=== PATIENT | male | born 1935 | race African-American/Black ===

== ENCOUNTER 2018-05-30 10:08 | Emergency (ER) | payer MEDICARE ==
[~2018-05-30] VITALS: Ht 185.4 cm; Wt 63.5 kg
[2018-05-30] MEDS ORDERED: SODIUM CHLORIDE 0.9% 1,000 ML IV ONE ×2 (12:04→13:45)
[2018-05-30] MEDS ORDERED: MORPHINE SULFATE 4 MG/ML CPJ (NOT FOR IM USE) IV STA (12:38)
[2018-05-30] MEDS ORDERED: TETANUS, DIPHTHERIA, PERTUSSIS VAC/PF 0.5ML (>7YR OLD) IM ONE (12:45)
[2018-05-30 13:07] LABS: CLARITY URINE CLOUDY (CLEAR); COLOR URINE YELLOW (YELLOW); KETONES URINE TRACE (NEGATIVE); LEUKOCYTE ESTERASE URINE TRACE (NEGATIVE); NITRITE URINE NEGATIVE (NEGATIVE); OCCULT BLOOD URINE 3+ (NEGATIVE); PROTEIN URINE 1+ (NEGATIVE); SPECIFIC GRAVITY URINE 1.018 (1.005-1.030); UROBILINOGEN URINE 0.2 E.U./dL (0.2-1.0)
[2018-05-30] MEDS ORDERED: SODIUM CHLORIDE 0.9% IRRIG SOLUTION 1000ML IR ONE (13:45)
[2018-05-30 13:53] LABS: *AMPHETAMINES SCREEN URINE NEGATIVE (NEGATIVE)
[2018-05-30 13:54] LABS: *BARBITURATES SCREEN URINE NEGATIVE (NEGATIVE); *BENZODIAZEPINES SCREEN URINE NEGATIVE (NEGATIVE); *COCAINE SCREEN URINE NEGATIVE (NEGATIVE); OPIATES URINE SCREEN PRESUMTIVE POSITIVE (NEGATIVE); PHENCYCLIDINE URINE SCREEN NEGATIVE (NEGATIVE)
[2018-05-30 13:55] LABS: CANNABINOID URINE SCREEN NEGATIVE (NEGATIVE); METHADONE URINE SCREEN NEGATIVE (NEGATIVE)
[2018-05-30 14:42] VITALS: BP 150/67
[2018-05-30 15:06] LABS: BASOPHILS % 0.2 % (0.0-2.0); EOSINOPHILS % 0.1 % (0.0-5.0); HEMOGLOBIN. 11.9 g/dL (14.0-18.0); LYMPHOCYTES % 8.8 % (20.0-50.0); MEAN CORPUSCULAR VOLUME 89.9 fL (80.0-94.0); MEAN PLATELET VOLUME 7.5 fl (7.4-10.4); MONOCYTES % 8.3 % (2.0-8.0); NEUTROPHILS % 82.6 % (40.0-76.0); PLATELET 334 x1000/uL (130-400); RED BLOOD CELL COUNT 4.12 mill/uL (4.7-6.1); RED CELL DISTRIBUTION WIDTH 14.7 % (11.6-14.6)
[2018-05-30 15:11] LABS: CHLORIDE 106 mEq/L (98-107)
[2018-05-30 15:13] LABS: PROTHROMBIN TIME 10.2 sec (9.1-11.1)
[2018-05-30 15:15] LABS: ETHANOL BLOOD < 10 mg/dL
== END 2018-05-30 15:12 | disposition short-term general hospital (02) ==
LOC: EDBD 10:21 → ER 10:21
DX: T24.392A Burn of third degree of multiple sites of left lower limb, except ankle and foot, initial encounter (principal); T24.391A Burn of third degree of multiple sites of right lower limb, except ankle and foot, initial encounter; T24.2 Burn of second degree of lower limb, except ankle and foot; T79.9XXA Unspecified early complication of trauma, initial encounter; F03.90 Unspecified dementia, unspecified severity, without behavioral disturbance, psychotic disturbance, mood disturbance, and anxiety; I10 Essential (primary) hypertension; E11.9 Type 2 diabetes mellitus without complications; F17.200 Nicotine dependence, unspecified, uncomplicated; Y27.9XXA Contact with unspecified hot objects, undetermined intent, initial encounter; Y93.9 Activity, unspecified; Y92.009 Unspecified place in unspecified non-institutional (private) residence as the place of occurrence of the external cause
CPT/HCPCS: 16000; 36415; 36556; 71045; 80053; 80305; 80320; 81003; 85025; 85610; 87086; 90715; 93005; 96374; 99285; J2270; J7030; G0480